=== PATIENT | male | born 1940 | race Caucasian/White ===

== ENCOUNTER 2020-12-05 21:08 | Day surgery (SDCO) | payer OTHER ==
[~2020-12-05] VITALS: Ht 157.5 cm; Wt 76.4 kg
[2020-12-05 22:03] LABS: BASOPHIL 0.3 % (0-2); EOSINOPHIL 0 % (0-7); HCT 49.5 % (42.0-52.0); HGB 16.6 g/dl (13.2-18.0); LYMPHOCYTE 10.9 % (15-48); MCH 30.4 pg (25.0-31.0); MCHC 33.5 g/dL (32.0-36.0); MCV 90.7 fL (78.0-100.0); MONOCYTE 10.7 % (0-12); NEUTROPHIL 77.9 % (41-80); NRBC 0; PLT 313 K/uL (150-400); RBC 5.46 M/uL (4.70-6.00); RDW 13.3 % (11.5-14.0); WBC 10.2 K/uL (4.0-10.5)
[2020-12-05 22:21] LABS: ALBUMIN 3.5 g/dL (3.4-5.0); BILIRUBIN - TOTAL 0.9 mg/dL (0.2-1.0); CREATININE 1.47 mg/dL (0.67-1.17); GLOBULIN (CALCULATION) 4.3 g/dL; TOTAL PROTEIN 7.8 g/dL (6.4-8.2)
[2020-12-06] MEDS ORDERED: ULTRAM50 MG PO (03:20)
[2020-12-06 04:38] LABS: BILIRUBIN NEGATIVE (NEGATIVE); BLOOD TRACE-LYSED Ery/uL (NEGATIVE); CLARITY CLEAR (CLEAR); COLOR YELLOW (YELLOW); GLUCOSE (U) NORMAL (NORMAL); LEUKOCYTES NEGATIVE Leu/uL (NEGATIVE); NITRITE NEGATIVE (NEGATIVE); PROTEIN NEGATIVE (NEGATIVE); UROBILINOGEN 0.2 mg/dL (0.2-1.0)
[2020-12-06 04:45] LABS: BACTERIA TRACE; MUCOUS TRACE; SQUAMOUS EPITHELIAL CELLS RARE; URINARY WBC RARE
[2020-12-06 05:57] LABS: BASOPHIL 0.1 % (0-2); EOSINOPHIL 0 % (0-7); HCT 40.8 % (42.0-52.0); HGB 13.4 g/dl (13.2-18.0); LYMPHOCYTE 10.2 % (15-48); MCH 30.5 pg (25.0-31.0); MCHC 32.8 g/dL (32.0-36.0); MCV 92.9 fL (78.0-100.0); MONOCYTE 7.3 % (0-12); MPV 9.9 fL (6.0-9.5); NEUTROPHIL 82.2 % (41-80); NRBC 0; PLT 242 K/uL (150-400); RBC 4.39 M/uL (4.70-6.00); RDW 13.4 % (11.5-14.0); WBC 10.1 K/uL (4.0-10.5)
[2020-12-06 06:21] LABS: CREATININE 1.07 mg/dL (0.67-1.17); POTASSIUM 4.7 mmol/L (3.5-5.1)
[2020-12-07 06:51] LABS: BUN/CREAT RATIO (CALC) 40.5 RATIO; CREATININE 0.74 mg/dL (0.67-1.17); POTASSIUM 4.3 mmol/L (3.5-5.1)
[2020-12-07] MEDS ORDERED: ASPIRIN EC81 MG PO (07:52)
[2020-12-07] MEDS ORDERED: ONDANSETRON ODT4 MG PO (10:31)
[2020-12-07] MEDS ORDERED: LEVAQUIN750 MG PO ×2 (13:08→14:23)
[2020-12-07] MEDS ORDERED: CARAFATE S500 MG/TSP PO (16:02)
[2020-12-07] MEDS ORDERED: PROTONIX40 MG PO (16:02)
[2020-12-08] MEDS ORDERED: FAMOTIDINE40 MG/5 ML PO (08:06)
[2020-12-08] MEDS ORDERED: ONDANSETRON PO (08:06)
[2020-12-08] MEDS ORDERED: PROMETHEGA12.5 MG/SU PR (08:15)
[2021-02-08] MEDS ORDERED: DAILY VALUE1 EACH PO (06:44)
== END 2020-12-07 16:38 | disposition home or self-care (01) ==
LOC: FER 21:08 → FMS 12-06 01:55
PROVIDERS: Allergy & Immunology Allergy; Nurse Practitioner; Nurse Practitioner Family; ADMIT Internal Medicine
DX: K20.90 Esophagitis, unspecified without bleeding (principal); N17.9 Acute kidney failure, unspecified; T80.52XA Anaphylactic reaction due to vaccination, initial encounter; R21 Rash and other nonspecific skin eruption; I21.4 Non-ST elevation (NSTEMI) myocardial infarction; I44.0 Atrioventricular block, first degree; G89.29 Other chronic pain; M54.9 Dorsalgia, unspecified; E86.0 Dehydration; R65.10 Systemic inflammatory response syndrome (SIRS) of non-infectious origin without acute organ dysfunction; J18.9 Pneumonia, unspecified organism; Z91.09 Other allergy status, other than to drugs and biological substances; Z90.49 Acquired absence of other specified parts of digestive tract; Z20.822 Contact with and (suspected) exposure to COVID-19; Z87.891 Personal history of nicotine dependence
CPT/HCPCS: 36415; 71045; 71046; 71250; 80048; 80053; 81001; 83605; 84145; 84484; 85025; 87040; 93005; G0378; J0780; J1100; J1200; J1650; J2405; J2543; J7030; U0002

== ENCOUNTER 2020-12-08 03:40 | Emergency (ER) | payer OTHER ==
[~2020-12-08 03:40] MED LIST: ASPIRIN EC81 MG PO; CARAFATE S500 MG/TSP PO; LEVAQUIN750 MG PO; ONDANSETRON ODT4 MG PO; PROTONIX40 MG PO; ULTRAM50 MG PO
[2020-12-08 04:15] LABS: BASOPHIL 0.3 % (0-2); EOSINOPHIL 0.3 % (0-7); HCT 43.4 % (42.0-52.0); HGB 14.4 g/dl (13.2-18.0); MCH 30.6 pg (25.0-31.0); MCHC 33.2 g/dL (32.0-36.0); MCV 92.1 fL (78.0-100.0); MONOCYTE 4.1 % (0-12); MPV 9.6 fL (6.0-9.5); NEUTROPHIL 74.7 % (41-80); NRBC 0; PLT 267 K/uL (150-400); RBC 4.71 M/uL (4.70-6.00); RDW 13.2 % (11.5-14.0); WBC 9.5 K/uL (4.0-10.5)
[2020-12-08 04:22] LABS: LYMPHOCYTE 19.6 % (15-48)
[2020-12-08 04:28] LABS: BUN/CREAT RATIO (CALC) 38.9 RATIO; CREATININE 0.72 mg/dL (0.67-1.17)
[2020-12-08] MEDS ORDERED: FAMOTIDINE40 MG/5 ML PO (08:06)
[2020-12-08] MEDS ORDERED: ONDANSETRON PO (08:06)
[2020-12-08] MEDS ORDERED: PROMETHEGA12.5 MG/SU PR (08:15)
[2021-02-08] MEDS ORDERED: DAILY VALUE1 EACH PO (06:44)
== END 2020-12-08 08:06 | disposition home or self-care (01) ==
LOC: FER 03:40
PROVIDERS: Emergency Medicine
DX: K20.90 Esophagitis, unspecified without bleeding (principal); L50.9 Urticaria, unspecified; Z88.5 Allergy status to narcotic agent
CPT/HCPCS: 36415; 80048; 84484; 85025; 87880; C9113; J1200; J2765; J2930; J7030

== ENCOUNTER → 2021-02-08 | Day surgery (SDC) | payer OTHER ==
[~2021-02-08] MED LIST changes: +DAILY VALUE1 EACH PO; +FAMOTIDINE40 MG/5 ML PO; +ONDANSETRON PO; +PROMETHEGA12.5 MG/SU PR
== END | disposition home or self-care (01) ==
LOC: FAS 06:18
DX: K22.2 Esophageal obstruction (principal); K44.9 Diaphragmatic hernia without obstruction or gangrene; K29.50 Unspecified chronic gastritis without bleeding; K21.9 Gastro-esophageal reflux disease without esophagitis
CPT/HCPCS: 88305; J2704; J7120